=== PATIENT | female | born 1985 | race American Indian/Alaskan Native ===

== ENCOUNTER 2018-07-16 09:11 | Emergency (ER) | payer OTHER ==
[2018-07-16 09:28] VITALS: BP 128/77
[2018-07-16] MEDS ORDERED: FLEXERIL PO ONE (10:14)
[2018-07-16] MEDS ORDERED: IBUPROFEN PO ONE (10:14)
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
== END 2018-07-16 11:08 | disposition home or self-care (01) ==
LOC: ED 09:11
DX: M25.512 Pain in left shoulder (principal); M79.18 Myalgia, other site; V49.49XA Driver injured in collision with other motor vehicles in traffic accident, initial encounter; Y93.89 Activity, other specified; Y92.89 Other specified places as the place of occurrence of the external cause; Y99.8 Other external cause status

== ENCOUNTER 2018-07-30 11:18 | Emergency (ER) | payer OTHER ==
[2018-07-30 11:49] VITALS: BP 128/68
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
[2018-07-30 12:42] LABS: Bilirubin,Urine NEG (Negative); Blood,Urine NEG (Negative); Color,Urine Yellow (Yellow); Mucus,Urine FEW /HPF; Protein,Urine <15 mg/dL mg/dL (Negative); RBC,Urine < 1.0 /HPF (0.0-6.0); Urobilinogen,Urine < 2.0 mg/dL (<2.0)
[2018-07-30 12:48] LABS: HCG Qualitative,Urine Negative (Negative)
--- NOTE | 2018-07-30 13:14 | Emergency Department Report ---
ED Female HPI - General Chief complaint: Abdominal Pain Stated complaint: ABD PAIN Time Seen by Provider: 07/30/18 11:48 Source: patient Mode of arrival: Ambulatory Limitations: No Limitations - History of Present Illness Initial comments: This is a 33-year-old female who presents ED complaining of vaginal irritation and discharge time 2-3 days. Patient states the changes in having some malodorous vaginal discharge. She denies abnormal bleeding. This last menstrual period was 07/21/2018. She describes some low pelvic cramping otherwise no other symptoms. She states that she mildly worried she has an STD. She denies fevers chills/nausea vomiting/dysuria Complaint: vaginal discharge - Related Data Previous Rx's Medication Instructions Recorded Last Taken Type Cyclobenzaprine [Flexeril] 10 mg PO TID PRN #10 tablet 07/16/18 Unknown Rx Ibuprofen [Motrin] 800 mg PO Q8HR PRN #20 tablet 07/16/18 Unknown Rx predniSONE [Deltasone] 20 mg PO DAILY #5 tablet 07/16/18 Unknown Rx metroNIDAZOLE [Flagyl] 500 mg PO Q12HR #14 tab 07/30/18 Unknown Rx Allergies Allergy/AdvReac Type Severity Reaction Status Date / Time No Known Allergies Allergy Verified 07/30/18 11:29 ED Review of Systems ROS: Stated complaint: ABD PAIN Other details as noted in HPI Comment: All other systems reviewed and negative ED Past Medical Hx - Past Medical History Previous Medical History?: No - Surgical History Additional Surgical History: C SECTION - Social History Smoking Status: Never Smoker Substance Use Type: None - Medications Home Medications: Home Medications Medication Instructions Recorded Confirmed Last Taken Type Cyclobenzaprine [Flexeril] 10 mg PO TID PRN #10 tablet 07/16/18 Unknown Rx Ibuprofen [Motrin] 800 mg PO Q8HR PRN #20 tablet 07/16/18 Unknown Rx predniSONE [Deltasone] 20 mg PO DAILY #5 tablet 07/16/18 Unknown Rx metroNIDAZOLE [Flagyl] 500 mg PO Q12HR #14 tab 07/30/18 Unknown Rx ED Physical Exam - General Limitations: No Limitations General appearance: alert, in no apparent distress - Head Head exam: Present: atraumatic, normocephalic - Eye Eye exam: Present: normal appearance - ENT ENT exam: Present: mucous membranes moist - Neck Neck exam: Present: normal inspection - Respiratory Respiratory exam: Present: normal lung sounds bilaterally. Absent: respiratory distress - Cardiovascular Cardiovascular Exam: Present: regular rate, normal rhythm. Absent: systolic murmur, diastolic murmur, rubs, gallop - GI/Abdominal GI/Abdominal exam: Present: soft, normal bowel sounds - External exam: Present: normal external exam Speculum exam: Present: normal speculum exam, vaginal discharge (no odor) Bi-manual exam: Present: normal bi-manual exam - Extremities Exam Extremities exam: Present: normal inspection - Back Exam Back exam: Present: normal inspection - Neurological Exam Neurological exam: Present: alert, oriented X3 - Psychiatric Psychiatric exam: Present: normal affect, normal mood - Skin Skin exam: Present: warm, dry, intact, normal color. Absent: rash ED Course Vital Signs 07/30/18 11:48 Temperature 98.1 F Pulse Rate 76 Respiratory 18 Rate Blood Pressure 128/68 O2 Sat by Pulse 99 Oximetry ED Medical Decision Making - Medical Decision Making 33-year-old female presents with vaginal discharge. Urinalysis, negative regnancy test negative Wet prep shows greater than 2 clue cells Discussed the patient tolerated Chlamydia culture would not be back for another 3-4 days. Discussed the patient urinalysis is clean sign discussed the follow-up gynecology referrals given. Critical care attestation.: If time is entered above; I have spent that time in minutes in the direct care of this critically ill patient, excluding procedure time. ED Disposition Clinical Impression: Vaginitis Disposition: DC-01 TO HOME OR SELFCARE Is pt being admited?: No Does the pt Need Aspirin: No Condition: Stable Instructions: Bacterial Vaginosis (ED), Vaginitis (ED), Abdominal Pain (ED) Additional Instructions: Make sure to follow up with the primary care physician as discussed. Take all your medications as you've been prescribed. If you have any worsening symptoms or develop new symptoms please return to ED immediately. Prescriptions: metroNIDAZOLE [Flagyl] 500 mg PO Q12HR #14 tab Referrals: [facility] [Outside] - 3-5 Days Forms: Work/School Release Form(ED)
== END 2018-07-30 13:38 | disposition home or self-care (01) ==
LOC: ED 11:18
DX: N76.0 Acute vaginitis (principal)
CPT/HCPCS: 81001; 81025; 87210; 87591

== ENCOUNTER 2019-01-03 12:58 | Emergency (ER) | payer SELFPAY ==
[2019-01-03 13:17] VITALS: BP 142/86
[2019-01-03 14:27] LABS: Bilirubin,Urine NEG (Negative); Blood,Urine NEG (Negative); Color,Urine Yellow (Yellow); Protein,Urine <15 mg/dL mg/dL (Negative); Urobilinogen,Urine < 2.0 mg/dL (<2.0)
[2019-01-03 14:28] LABS: Mucus,Urine 2+ /HPF
[2019-01-03 14:38] LABS: HCG Qualitative,Urine Negative (Negative)
[2019-01-03] MEDS ORDERED: IBUPROFEN PO ONE (15:24)
--- NOTE | 2019-01-03 15:36 | Emergency Department Report ---
ED Female HPI - General Chief complaint: Abdominal Pain Stated complaint: VAGINAL BURNING Time Seen by Provider: 01/03/19 14:27 Source: patient Mode of arrival: Ambulatory Limitations: No Limitations - History of Present Illness Initial comments: 33-year-old female with no significant past medical history and past surgical history of presents complaining of vaginal burning and irritation with discharge 2 days. Patient denies nausea, vomiting, dysuria, urinary frequency, fever, or hematuria. She states the active with one partner and does not use condoms. - Related Data Previous Rx's Medication Instructions Recorded Last Taken Type Cyclobenzaprine [Flexeril] 10 mg PO TID PRN #10 tablet 07/16/18 Unknown Rx Ibuprofen [Motrin] 800 mg PO Q8HR PRN #20 tablet 07/16/18 Unknown Rx predniSONE [Deltasone] 20 mg PO DAILY #5 tablet 07/16/18 Unknown Rx metroNIDAZOLE [Flagyl] 500 mg PO Q12HR #14 tab 07/30/18 Unknown Rx Allergies Allergy/AdvReac Type Severity Reaction Status Date / Time No Known Allergies Allergy Verified 01/03/19 12:59 ED Review of Systems ROS: Stated complaint: VAGINAL BURNING Other details as noted in HPI Comment: All other systems reviewed and negative ED Past Medical Hx - Past Medical History Previous Medical History?: No - Surgical History Additional Surgical History: C SECTION - Social History Smoking Status: Never Smoker - Medications Home Medications: Home Medications Medication Instructions Recorded Confirmed Last Taken Type Cyclobenzaprine [Flexeril] 10 mg PO TID PRN #10 tablet 07/16/18 Unknown Rx Ibuprofen [Motrin] 800 mg PO Q8HR PRN #20 tablet 07/16/18 Unknown Rx predniSONE [Deltasone] 20 mg PO DAILY #5 tablet 07/16/18 Unknown Rx metroNIDAZOLE [Flagyl] 500 mg PO Q12HR #14 tab 07/30/18 Unknown Rx ED Physical Exam - General Limitations: No Limitations - Other Other exam information: Gen.: No acute distress Head: Atraumatic Eyes: Normal appearance ENT: Moist mucous membranes Neck: Normal appearance, no posterior midline tenderness, no meningismus Chest: Clear to auscultation bilaterally Cardiovascular: Regular rate and rhythm Abdomen: Normal appearance, soft, mild suprapubic tenderness, no rebound or guarding, normal bowel sounds : white clumping vag d/c, mild fishy odor, no external lesions, no cmt Back: Normal appearance, nontender Extremity: Full range of motion, normal appearance Neuro: Alert, clear speech, no focal motor or sensory deficit Psychiatric: Appropriate Skin: No rash ED Course Vital Signs 01/03/19 13:15 Temperature 97.6 F Pulse Rate 84 Respiratory 18 Rate Blood Pressure 142/86 O2 Sat by Pulse 100 Oximetry - Reevaluation(s) Reevaluation #1: 01/03/19 15:33 motrin offered to pt. she told nurse to "take that shit out of here." Motrin was refused ED Medical Decision Making - Lab Data Lab Results 01/03/19 01/03/19 Range/Units Unknown Unknown Urine Color Yellow (Yellow) Urine Turbidity Hazy (Clear) Urine pH 5.0 (5.0-7.0) Ur Specific [place] 1.027 (1.003-1.030) Urine Protein <15 mg/dl (Negative) mg/dL Urine Glucose (UA) Neg (Negative) mg/dL Urine Ketones Neg (Negative) mg/dL Urine Blood Neg (Negative) Urine Nitrite Neg (Negative) Urine Bilirubin Neg (Negative) Urine Urobilinogen < 2.0 (<2.0) mg/dL Ur Leukocyte Esterase Sm (Negative) Urine WBC (Auto) 3.0 (0.0-6.0) /HPF Urine RBC (Auto) 4.0 (0.0-6.0) /HPF U Epithel Cells (Auto) 17.0 H (0-13.0) /HPF Urine Mucus 2+ /HPF Urine HCG, Qual Negative (Negative) wet prep < 20 clue cells, no trich, no yeast - Medical Decision Making vaginal irritation no acute infection identified in ed gc/chlamydia pending - Differential Diagnosis cervicitis, vaginitis, , UTI Critical Care Time: No Critical care attestation.: If time is entered above; I have spent that time in minutes in the direct care of this critically ill patient, excluding procedure time. ED Disposition Clinical Impression: Vaginal irritation Disposition: DC- TO HOME OR SELFCARE Is pt being admited?: No Condition: Stable Instructions: Vaginitis (ED) Additional Instructions: Take the medication as prescribed. Follow-up with your doctor or with the doctor/clinic provided. Return if symptoms worsen as indicated by your discharge instructions.Your gonorrhea and chlamydia tests were sent. These take about 2-3 days to result. You may obtain results by going to medical records with photo ID. Your doctor may also requested results from his or her office after you provide written permission. Referrals: PRIMARY CARE, [Primary Care Provider] - 3-5 Days [facility] [Provider Group] - 3-5 Days ELE SORTO MD [Staff Physician] - 3-5 Days (pilot instructor ) Time of Disposition: 16:15
== END 2019-01-03 16:30 | disposition home or self-care (01) ==
LOC: ED 12:58
DX: N89.8 Other specified noninflammatory disorders of vagina (principal); Z79.899 Other long term (current) drug therapy
CPT/HCPCS: 81001; 81025; 87210; 87591

== ENCOUNTER 2020-10-23 06:59 | Emergency (ER) | payer OTHER ==
[2020-10-23 07:14] VITALS: BP 136/98
[2020-10-23 10:53] LABS: HCG Qualitative,Urine Negative (Negative)
--- NOTE | 2020-10-23 11:29 | XRay Report ---
CHEST 2 VIEWS INDICATION / CLINICAL INFORMATION: sob,cough and rales. COMPARISON: None available. FINDINGS: SUPPORT DEVICES: None. HEART / MEDIASTINUM: The right heart border is prominent and the main pulmonary artery appears dilate d. LUNGS / PLEURA: No significant pulmonary or pleural abnormality. No pneumothorax. ADDITIONAL FINDINGS: No significant additional findings. IMPRESSION: 1. The right atrium appears dilated as well as the main pulmonary artery. Findings are concerning for pulmonary artery hypertension. The lungs are clear. Signer Name: Keagan Rios MD Signed: 10/23/2020 11:24 AM Workstation Name: [email or web address]
--- NOTE | 2020-10-23 11:43 | Emergency Department Report ---
ED General Adult HPI - General Chief complaint: Dyspnea/Respdistress Stated complaint: BODY ACHES/CHEST PAIN Time Seen by Provider: 10/23/20 09:29 Source: patient Mode of arrival: Ambulatory Limitations: No Limitations - History of Present Illness Initial comments: 35-year-old morbid obese -[place] female presents to the emergency room for intermittent cough body aches and chest pain with cough since x2 days. Patient is unvaccinated for Covid. She has not been tested for Covid. She works as a [employer] on the [employer]. Patient states been taking [id number] cough syrup. She denies any fever chills no nausea no vomiting or diarrhea. Patient denies any past medical history currently takes no medications on a daily basis Onset/Timin -: days(s) Location: chest Radiation: non-radiation Severity scale (0 -10): 0 Quality: aching Consistency: intermittent Improves with: none Associated Symptoms: cough Treatments Prior to Arrival: none - Related Data Previous Rx's Medication Instructions Recorded Last Taken Type Cyclobenzaprine [Flexeril] 10 mg PO TID PRN #10 tablet 07/16/18 Unknown Rx Ibuprofen [Motrin] 800 mg PO Q8HR PRN #20 tablet 07/16/18 Unknown Rx predniSONE [Deltasone] 20 mg PO DAILY #5 tablet 07/16/18 Unknown Rx metroNIDAZOLE [Flagyl] 500 mg PO Q12HR #14 tab 07/30/18 Unknown Rx Allergies Allergy/AdvReac Type Severity Reaction Status Date / Time No Known Allergies Allergy Verified 01/03/19 12:59 ED Review of Systems ROS: Stated complaint: BODY ACHES/CHEST PAIN Other details as noted in HPI ED Past Medical Hx - Past Medical History Previous Medical History?: No - Surgical History Past Surgical History?: Yes Additional Surgical History: C SECTION - Social History Smoking Status: Never Smoker - Medications Home Medications: Home Medications Medication Instructions Recorded Confirmed Last Taken Type Cyclobenzaprine [Flexeril] 10 mg PO TID PRN #10 tablet 07/16/18 Unknown Rx Ibuprofen [Motrin] 800 mg PO Q8HR PRN #20 tablet 07/16/18 Unknown Rx predniSONE [Deltasone] 20 mg PO DAILY #5 tablet 07/16/18 Unknown Rx metroNIDAZOLE [Flagyl] 500 mg PO Q12HR #14 tab 07/30/18 Unknown Rx ED Physical Exam - General Limitations: No Limitations General appearance: alert, in no apparent distress - Head Head exam: Present: atraumatic, normocephalic - Eye Eye exam: Present: normal appearance - ENT ENT exam: Present: mucous membranes moist - Neck Neck exam: Present: normal inspection - Respiratory Respiratory exam: Present: normal lung sounds bilaterally. Absent: respiratory distress - Cardiovascular Cardiovascular Exam: Present: regular rate, normal rhythm. Absent: systolic murmur, diastolic murmur, rubs, gallop - GI/Abdominal GI/Abdominal exam: Present: soft, normal bowel sounds - Extremities Exam Extremities exam: Present: normal inspection - Back Exam Back exam: Present: normal inspection - Neurological Exam Neurological exam: Present: alert, oriented X3, normal gait - Psychiatric Psychiatric exam: Present: normal affect, normal mood - Skin Skin exam: Present: warm, dry, intact, normal color. Absent: rash ED Course Vital Signs 10/23/20 07:13 Temperature 98.5 F Pulse Rate 70 Respiratory 18 Rate Blood Pressure 136/98 [Right] O2 Sat by Pulse 99 Oximetry ED Medical Decision Making - Radiology Data Radiology results: report reviewed Study Comments [facility] [address] [place] [address] XRay Report Signed Patient: JOSUÉ MONACO MR#: [id number] : 1985 Acct:[id number] Age/Sex: 35 / F ADM Date: 10/23/20 Loc: ED Attending Dr: Ordering Physician: LOREN SANTANA Date of Service: 10/23/20 Procedure(s): XR chest routine 2V Accession Number(s): [id number] cc: LOREN SANTANA Fluoro Time In Minutes: CHEST 2 VIEWS INDICATION / CLINICAL INFORMATION: sob,cough and rales. COMPARISON: None available. FINDINGS: SUPPORT DEVICES: None. HEART / MEDIASTINUM: The right heart border is prominent and the main pulmonary artery appears dilated. LUNGS / PLEURA: No significant pulmonary or pleural abnormality. No pneumothorax. ADDITIONAL FINDINGS: No significant additional findings. IMPRESSION: 1. The right atrium appears dilated as well as the main pulmonary artery. Findings are concerning for pulmonary artery hypertension. The lungs are clear. Signer Name: Keagan Rios MD Signed: 10/23/2020 11:24 AM Workstation Name: [email or web address] Transcribed By: DB Dictated By: KEAGAN RIOS MD Electronically Authenticated By: KEAGAN RIOS MD Signed Date/Time: 10/23/20 1124 DD/ 1119 TD/TT: Critical care attestation.: If time is entered above; I have spent that time in minutes in the direct care of this critically ill patient, excluding procedure time. ED Disposition Clinical Impression: Cough, Viral syndrome Disposition: DC-01 TO HOME OR SELFCARE Is pt being admited?: No Does the pt Need Aspirin: No Condition: Stable Additional Instructions: Your symptoms appear most consistent with a nonspecific viral syndrome. However, given this current pandemic, COVID-19 is in the differential of possibilities. I do recommend outpatient Covid 19 testing. In the meantime, isolate/quarantine yourself and stay away from anyone who is elderly, immunocompromised or chronically ill. You can use ibuprofen every 6-8 hours and Tylenol every 4-8 hours, using the dosing on the back of the bottle, as needed for any fever or body aches. Return to the emergency department with any worsening of your symptoms, development of chest pain or shortness of breath, or with any acute distress. Chest x-ray is negative for any pneumonia. Vital signs are stable. Referrals: PRIMARY CAREMD [Primary Care Provider] - 3-5 Days [facility] [Provider Group] - 3-5 Days Forms: Work/School Release Form(ED) Time of Disposition: 12:00
== END 2020-10-23 12:12 | disposition home or self-care (01) ==
LOC: ED 06:59
DX: B34.9 Viral infection, unspecified (principal)
CPT/HCPCS: 71046; 81025; 99283

== ENCOUNTER 2020-11-12 22:22 | Emergency (ER) | payer OTHER | END 2020-11-13 19:03 | disposition home or self-care (01) | LOC: ED 22:22 | DX: R21 Rash and other nonspecific skin eruption (principal); Z53.21 Procedure and treatment not carried out due to patient leaving prior to being seen by health care provider ==

== ENCOUNTER 2020-11-25 23:55 | Emergency (ER) | payer OTHER ==
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
--- NOTE | 2020-11-26 03:49 | Emergency Department Report ---
ED Lower Extremity HPI - General Chief Complaint: Extremity Injury, Lower Stated Complaint: LEFT ANKLE SWOLLEN AND PAINFUL Source: patient Mode of arrival: Wheelchair Limitations: No Limitations - History of Present Illness Initial Comments: Patient is a 35-year-old -Dominican female with no past medical history presents to the ED with complaint of acute onset persistent severe left ankle and foot pain with swelling after she accidentally twisted her left ankle and fell down about 3 hours ago. Patient states that the pain is worse with any movement and that she is unable to bear weight on the left foot or left ankle. Patient denies head or neck injuries, back pain, chest pain, shortness of breath, hip pain, abdominal pain, nausea and vomiting or loss of consciousness, numbness and tingling or weakness of lower extremities bilaterally. MD Complaint: ankle injury (Left ankle pain and swelling), foot injury (Left foot pain and swelling) -: Sudden, hour(s) (3) Injury: Ankle: Left (Pain and swelling), Foot: Left (Pain and swelling) Type of Injury: inversion, other (Twisted left ankle and foot) Place: home Severity: severe Severity scale (0 -10): 8 Improves With: nothing Worsens With: weight bearing, movement, palpation Context: other (Twisted left ankle and foot) Associated Symptoms: swelling, unable to bear weight. denies: snap/pop sensation, numbness, tingling, able to partially bear weight, ambulatory - Related Data Previous Rx's Medication Instructions Recorded Last Taken Type Cyclobenzaprine [Flexeril] 10 mg PO TID PRN #10 tablet 07/16/18 Unknown Rx Ibuprofen [Motrin] 800 mg PO Q8HR PRN #20 tablet 07/16/18 Unknown Rx predniSONE [Deltasone] 20 mg PO DAILY #5 tablet 07/16/18 Unknown Rx metroNIDAZOLE [Flagyl] 500 mg PO Q12HR #14 tab 07/30/18 Unknown Rx HYDROcodone/APAP 7.5-325 [[place] 1 each PO Q6HR PRN #12 tablet 11/26/20 Unknown Rx 7.5/325] Ibuprofen [Motrin] 800 mg PO Q8HR PRN #30 tablet 11/26/20 Unknown Rx Allergies Allergy/AdvReac Type Severity Reaction Status Date / Time No Known Allergies Allergy Verified 01/03/19 12:59 ED Review of Systems ROS: Stated complaint: LEFT ANKLE SWOLLEN AND PAINFUL Other details as noted in HPI Constitutional: denies: chills, fever Eyes: denies: eye pain, eye discharge, vision change ENT: denies: ear pain, throat pain Respiratory: denies: cough, shortness of breath, wheezing Cardiovascular: denies: chest pain, palpitations Endocrine: no symptoms reported Gastrointestinal: denies: abdominal pain, nausea, diarrhea Genitourinary: denies: urgency, dysuria, discharge Musculoskeletal: joint swelling (Left ankle and foot pain and swelling), arthralgia (Left ankle and foot pain with swelling). denies: back pain Skin: denies: rash, lesions Neurological: denies: headache, weakness, paresthesias Psychiatric: denies: anxiety, depression Hematological/Lymphatic: denies: easy bleeding, easy bruising ED Past Medical Hx - Past Medical History Previous Medical History?: No - Surgical History Past Surgical History?: Yes Additional Surgical History: C SECTION - Social History Smoking Status: Never Smoker - Medications Home Medications: Home Medications Medication Instructions Recorded Confirmed Last Taken Type Cyclobenzaprine [Flexeril] 10 mg PO TID PRN #10 tablet 07/16/18 Unknown Rx Ibuprofen [Motrin] 800 mg PO Q8HR PRN #20 tablet 07/16/18 Unknown Rx predniSONE [Deltasone] 20 mg PO DAILY #5 tablet 07/16/18 Unknown Rx metroNIDAZOLE [Flagyl] 500 mg PO Q12HR #14 tab 07/30/18 Unknown Rx HYDROcodone/APAP 7.5-325 [[place] 1 each PO Q6HR PRN #12 tablet 11/26/20 Unknown Rx 7.5/325] Ibuprofen [Motrin] 800 mg PO Q8HR PRN #30 tablet 11/26/20 Unknown Rx ED Physical Exam - General Limitations: No Limitations General appearance: alert, in no apparent distress - Head Head exam: Present: atraumatic, normocephalic, normal inspection - Eye Eye exam: Present: normal appearance, PERRL, EOMI Pupils: Present: normal accommodation - ENT ENT exam: Present: normal exam, normal orophraynx, mucous membranes moist, TM's normal bilaterally, normal external ear exam - Neck Neck exam: Present: normal inspection, full ROM - Respiratory Respiratory exam: Present: normal lung sounds bilaterally. Absent: respiratory distress, wheezes, rales, chest wall tenderness, accessory muscle use, decreased breath sounds - Cardiovascular Cardiovascular Exam: Present: regular rate, normal rhythm, normal heart sounds. Absent: systolic murmur, diastolic murmur, rubs, gallop - GI/Abdominal GI/Abdominal exam: Present: soft, normal bowel sounds. Absent: tenderness, guarding, rebound, hyperactive bowel sounds, hypoactive bowel sounds, organomegaly - Extremities Exam Extremities exam: Present: normal inspection, tenderness (Severe palpable left ankle and foot tenderness with mild swelling), normal capillary refill, joint swelling (Left ankle swelling). Absent: full ROM (Limited range of motion of the left ankle and foot due to pain), calf tenderness - Back Exam Back exam: Present: normal inspection, full ROM. Absent: tenderness, CVA tenderness (R), CVA tenderness (L), muscle spasm, paraspinal tenderness, vertebral tenderness - Neurological Exam Neurological exam: Present: alert, oriented X3, CN II-XII intact, normal gait, reflexes normal - Psychiatric Psychiatric exam: Present: normal affect, normal mood - Skin Skin exam: Present: warm, dry, intact, normal color. Absent: rash ED Course Vital Signs 11/26/20 11/26/20 02:12 05:28 Temperature 98.7 F 98.0 F Pulse Rate 71 64 Respiratory 16 Rate Blood Pressure 147/94 152/84 [Right] O2 Sat by Pulse 100 100 Oximetry ED Lower Extremity MDM - Radiology Data Radiology results: report reviewed, image reviewed [facility] [address] [place] [address] XRay Report Signed Patient: JOSUÉ MONACO MR#: [id number] : 1985 Acct:[id number] Age/Sex: 35 / F ADM Date: 11/25/20 Loc: ED Attending Dr: Ordering Physician: LASHAWN FLAHERTY MD Date of Service: 11/26/20 Procedure(s): XR ankle 3+V LT Accession Number(s): [id number] cc: LASHAWN FLAHERTY MD Fluoro Time In Minutes: Left foot 3 views INDICATION: Injury FINDINGS: MTP joints and IP joints appear intact. Midfoot alignment appears intact. Calcaneus appears normal. Left ankle 3 views INDICATION: Injury FINDINGS: Spinal fracture within the distal fibula extending to the distal tibiofibular joint. No widening of the syndesmosis. Talar dome appears intact. Diffuse soft tissue swelling throughout the ankle. IMPRESSION: Sprout fracture which may be slightly comminuted in the distal fibula. No severe displacement. Diffuse soft tissue swelling is seen. Signer Name: Brad Horan MD Signed: 11/26/2020 3:29 AM Workstation Name: [id number] Transcribed By: JANINE Dictated By: CINDY HORAN MD Electronically Authenticated By: CINDY HORAN MD Signed Date/Time: 11/26/20328 DD/ 7 TD/TT: - Medical Decision Making This is a 35-year-old -Dominican female with no past medical history presents to the ED with complaint of acute onset persistent severe left ankle and foot pain with swelling after she accidentally twisted her left ankle and fell down about 3 hours ago. Patient states that the pain is worse with any movement and that she is unable to bear weight on the left foot or left ankle. In the ED, patient is alert and oriented x3 and is not in any distress but appears to be in significant pain. Patient was treated for pain in the ED and left ankle and foot x-rays showed spinal fracture within the distal fibula extending to the distal tibiofibular joint. No widening of the syndesmosis. Talar dome appears intact. Diffuse soft tissue swelling throughout the ankle. The patient left ankle and foot was splinted with long leg posterior splint, and also fitted with crutches for ambulation. Patient was discharged home on pain medications and given a referral to the orthopedic surgeon Dr. Hassan for follow-up in 2 to 3 days. Patient was advised to contact the Mo's office first thing in the morning on Friday, November 27, 2020 to schedule a follow-up appointment. Patient was advised return to the ED immediately if symptoms get worse. - Differential Diagnosis Foot fracture; ankle fracture; ankle sprain; foot sprain Critical care attestation.: If time is entered above; I have spent that time in minutes in the direct care of this critically ill patient, excluding procedure time. ED Disposition Clinical Impression: Fracture of distal end of left fibula Qualifiers: Encounter type: initial encounter Fracture type: closed Fracture morphology: other fracture Qualified Code(s): S82.832A - Other fracture of upper and lower end of left fibula, initial encounter for closed fracture Sprain of left foot Qualifiers: Encounter type: initial encounter Qualified Code(s): S93.602A - Unspecified sprain of left foot, initial encounter Disposition: HOME / SELF CARE / HOMELESS Is pt being admited?: No Does the pt Need Aspirin: No Condition: Stable Instructions: Nondisplaced Fibular Ankle Fracture Treated With Immobilization, Adult, Cast or Splint Care, Adult, [id number] Additional Instructions: The left ankle and foot x-rays showed closed nondisplaced distal left fibula fracture. Therefore observe complete nonweightbearing on the left ankle and foot, take pain medications as needed with food, drink plenty of fluids and follow-up with the orthopedic surgeon Dr. Hassan for further evaluation. Contact Dr. Hassan's office first thing in the morning on Friday, November 27, 2020 to schedule a follow-up appointment. Return to the ED immediately if symptoms get worse. Prescriptions: Ibuprofen [Motrin] 800 mg PO Q8HR PRN #30 tablet PRN Reason: Pain , Severe (7-10) HYDROcodone/APAP 7.5-325 [[place] 7.5/325] 1 each PO Q6HR PRN #12 tablet PRN Reason: Pain Referrals: ALBINO HASSAN MD [Staff Physician] - 2-3 Days Forms: Work/School Release Form(ED) Time of Disposition: 03:51 Print Language: AZERI
[2020-11-26] MEDS ORDERED: IBUPROFEN 600 MG TAB PO ONE (03:57)
[2020-11-26] MEDS ORDERED: HYDROcodone/ACETAMINOPHEN 7.5-325MG TAB PO ONE (03:57)
[2020-11-26 05:29] VITALS: BP 152/84
== END 2020-11-26 05:29 | disposition home or self-care (01) ==
LOC: ED 23:55
DX: S82.832A Other fracture of upper and lower end of left fibula, initial encounter for closed fracture (principal); S93.602A Unspecified sprain of left foot, initial encounter; Z79.899 Other long term (current) drug therapy; Z98.890 Other specified postprocedural states; X58.XXXA Exposure to other specified factors, initial encounter; Y93.89 Activity, other specified; Y92.099 Unspecified place in other non-institutional residence as the place of occurrence of the external cause; Y99.8 Other external cause status

== ENCOUNTER 2021-01-06 05:23 | Emergency (ER) | payer OTHER ==
--- NOTE | 2021-01-06 06:36 | XRay Report ---
CHEST 2 VIEWS INDICATION / CLINICAL INFORMATION: Chest Pain. COMPARISON: None available. FINDINGS: SUPPORT DEVICES: None. HEART / MEDIASTINUM: No significant abnormality. LUNGS / PLEURA: No significant pulmonary or pleural abnormality. No pneumothorax. ADDITIONAL FINDINGS: No significant additional findings. IMPRESSION: 1. No acute findings. Signer Name: Brad Horan MD Signed: 01/06/2021 6:32 AM Workstation Name: [email or web address]
--- NOTE | 2021-01-06 08:08 | Emergency Department Report ---
ED Chest Pain HPI - General Chief Complaint: Chest Pain Stated Complaint: SOB WHOLE BODY HURT Time Seen by Provider: 01/06/21 08:03 Source: patient Mode of arrival: Ambulatory Limitations: No Limitations - History of Present Illness Initial Comments: 35-year-old -English female presents to the emergency department with multiple complaints. Patient broke her left ankle about 1 month ago and has been wearing an orthopedic boot. She now complains of having pain to the left calf and back of the left knee and upper leg for the past few days. She denies any swelling of the leg. The patient also complains of a 2 to 3-day history of generalized body aches including some generalized chest pain/pressure. This worsens with breathing and with certain movements of her torso. Lastly, the patient says that she noticed some bright red blood in her stool since overnight last night. She tried some Tylenol earlier in the day without any relief. No recent travel or sick contacts at home. She denies any tobacco use. No family history of early NV. - Related Data Previous Rx's Medication Instructions Recorded Last Taken Type Cyclobenzaprine [Flexeril] 10 mg PO TID PRN #10 tablet 07/16/18 Unknown Rx Ibuprofen [Motrin] 800 mg PO Q8HR PRN #20 tablet 07/16/18 Unknown Rx predniSONE [Deltasone] 20 mg PO DAILY #5 tablet 07/16/18 Unknown Rx metroNIDAZOLE [Flagyl] 500 mg PO Q12HR #14 tab 07/30/18 Unknown Rx HYDROcodone/APAP 7.5-325 [[place] 1 each PO Q6HR PRN #12 tablet 11/26/20 Unknown R x 7.5/325] Ibuprofen [Motrin] 800 mg PO Q8HR PRN #30 tablet 11/26/20 Unknown Rx Allergies Allergy/AdvReac Type Severity Reaction Status Date / Time No Known Allergies Allergy Verified 01/03/19 12:59 Heart Score - HEART Score History: Slightly suspicious EKG: Normal Age: < 45 Risk factors: No known risk factors Troponin: < normal limit HEART Score: 0 - EKG Read Time Time EKG Completed: 05:41 EKG Read Time: 05:43 ED Review of Systems ROS: Stated complaint: SOB WHOLE BODY HURT Other details as noted in HPI Comment: All other systems reviewed and negative Constitutional: denies: chills, fever Eyes: denies: eye pain, vision change ENT: denies: ear pain, throat pain Respiratory: shortness of breath. denies: cough Cardiovascular: chest pain. denies: palpitations Gastrointestinal: denies: abdominal pain, vomiting Genitourinary: denies: dysuria, discharge Musculoskeletal: back pain, myalgia Skin: denies: rash, lesions Neurological: denies: headache, weakness, numbness ED Past Medical Hx - Past Medical History Previous Medical History?: No - Surgical History Past Surgical History?: Yes Additional Surgical History: C SECTION, plates & screws L ankle. - Social History Smoking Status: Never Smoker - Medications Home Medications: Home Medications Medication Instructions Recorded Confirmed Last Taken Type Cyclobenzaprine [Flexeril] 10 mg PO TID PRN #10 tablet 07/16/18 Unknown Rx Ibuprofen [Motrin] 800 mg PO Q8HR PRN #20 tablet 07/16/18 Unknown Rx predniSONE [Deltasone] 20 mg PO DAILY #5 tablet 07/16/18 Unknown Rx metroNIDAZOLE [Flagyl] 500 mg PO Q12HR #14 tab 07/30/18 Unknown Rx HYDROcodone/APAP 7.5-325 [[place] 1 each PO Q6HR PRN #12 tablet 11/26/20 Unknown Rx 7.5/325] Ibuprofen [Motrin] 800 mg PO Q8HR PRN #30 tablet 11/26/20 Unknown Rx ED Physical Exam - General Limitations: No Limitations - Other Other exam information: GENERAL: The patient is well-developed well-nourished. HENT: Normocephalic. Atraumatic. Patient has moist mucous membranes. EYES: Extraocular motions are intact. NECK: Supple. Trachea is midline. CHEST/LUNGS: Clear to auscultation. There is no respiratory distress noted. HEART/CARDIOVASCULAR: Regular. There is no tachycardia. There is no murmur. ABDOMEN: Abdomen is soft, nontender. Patient has normal bowel sounds. Obese habitus. SKIN: Skin is warm and dry. NEURO: The patient is awake, alert, and oriented. The patient is cooperative. The patient has no focal neurologic deficits. Normal speech. MUSCULOSKELETAL: There is some tenderness to palpation to the left calf. There is no limitation range of motion. RECTAL: Deferred ED Course Vital Signs 01/06/21 01/06/21 05:33 10:57 Temperature 98.9 F 98.6 F Pulse Rate 68 61 Respiratory 16 20 Rate Blood Pressure 147/89 127/86 O2 Sat by Pulse 97 97 Oximetry JAGJIT score - Jagjit Score Age > 65: (0) No Aspirin use within the Past 7 Days: (0) No 3 or more CAD Risk Factors: (0) No 2 or more Angina events in past 24 hrs: (1) Yes Known CAD with more than 50% Stenosis: (0) No Elevated Cardiac Markers: (0) No ST Deviation Greater than 0.5mm: (0) No JAGJIT Score: 1 ED Medical Decision Making - Lab Data Result diagrams: 01/06/21 08:21 01/06/21 08:21 - EKG Data -: EKG Interpreted by Me EKG shows normal: sinus rhythm, axis, intervals, QRS complexes, ST-T waves Rate: normal - EKG Data When compared to previous EKG there are: previous EKG unavailable Interpretation: normal EKG - Radiology Data Radiology results: report reviewed, image reviewed interpreted by me: Chest x-ray does not show any acute process. There are no pleural effusions, obvious pneumonia and there is no pneumothorax. No widened mediastinum. DUPLEX DOPPLER LOWER EXTREMITY VEINS, LEFT INDICATION: Left leg pain. TECHNIQUE: Duplex doppler imaging was performed through the veins of the left lower extremity using venous compression and other maneuvers. COMPARISON: None available. FINDINGS: Common Femoral vein: Negative. Superficial Femoral vein: Negative. Popliteal vein: Negative. Calf veins: Negative. Additional findings: None. IMPRESSION: 1. No sonographic evidence for DVT in the left lower extremity. - Medical Decision Making This patient presents to the emergency department with generalized body aches, that also includes chest pain. She also complains of left calf pain and going up into the posterior knee. Patient had a left lower extremity venous Doppler ultrasound that was negative for DVT. EKG is normal without morphology consistent with ST elevation myocardial infarction or any arrhythmia. Chest x- ray does not show any pneumonia, pleural effusions, pneumothorax, widened medi astinum, or any other acute process. Labs have been unremarkable including CBC, metabolic panel and a negative troponin. The patient is low on the heart and JAGJIT score. She is low on the Wells score criteria and negative on the pulmonary embolism rule out criteria. For all these reasons the patient appears safe for discharge home at this time. She has been instructed to follow-up with her orthopedist and a vending machine filler through the [employer] system. The patient also told me that she has had some mild rectal bleeding since last night. Hemoglobin was stable. She will follow up with GI and may need a colonoscopy in the near future. She will return to the emergency department with any worse radha of her symptoms or with any acute distress. Critical Care Time: No Critical care attestation.: If time is entered above; I have spent that time in minutes in the direct care of this critically ill patient, excluding procedure time. ED Disposition Clinical Impression: Atypical chest pain, Rectal bleeding, Left leg pain, Hyperkalemia Disposition: HOME / SELF CARE / HOMELESS Is pt being admited?: No Condition: Stable Instructions: Rectal Bleeding, Nonspecific Chest Pain, Adult, Hyperkalemia, Mu sculoskeletal Pain Additional Instructions: Please follow-up with your primary care physician in the next few days. Please follow-up with your orthopedist regarding your left leg pains. The venous Doppler ultrasound done today did not show any evidence of a blood clot. Use your crutches as needed for nonweightbearing to that left leg. Please follow-up with a dressage judge, through the [facility] system, in regards to the rectal bleeding. You may need a colonoscopy in the near future. Return to the emergency department with any worsening of your symptoms, new or concerning symptoms not addressed during this current emergency department visit, or with any acute distress. Referrals: WADE BRIONES [Other] - 2-3 Days Time of Disposition: 10:48
[2021-01-06 09:27] LABS: Basophils % (Auto) 0.7 % (0.0-1.8); Eosinophils # (Auto) 0.3 K/mm3 (0.0-0.4); Eosinophils % (Auto) 3.7 % (0.0-4.3); Hematocrit 40.8 % (30.3-42.9); Hemoglobin 12.8 gm/dl (10.1-14.3); Lymphocytes # (Auto) 2.4 K/mm3 (1.2-5.4); Mean Corpuscular HGB Conc 31 % (30-34); Mean Corpuscular Volume 83 fl (79-97); Monocytes # (Auto) 0.7 K/mm3 (0.0-0.8); Monocytes % (Auto) 9.4 % (0.0-7.3); Platelet Count 274 K/mm3 (140-440); Red Blood Count 4.89 M/mm3 (3.65-5.03); Red Cell Distribution Width 13.9 % (13.2-15.2)
[2021-01-06 09:34] LABS: INR 1.11 (0.87-1.13)
--- NOTE | 2021-01-06 09:49 | Vascular Lab Report ---
DUPLEX DOPPLER LOWER EXTREMITY VEINS, LEFT INDICATION: Left leg pain. TECHNIQUE: Duplex doppler imaging was performed through the veins of the left lower extremity using venous compr ession and other maneuvers. COMPARISON: None available. FINDINGS: Common Femoral vein: Negative. Superficial Femoral vein: Negative. Popliteal vein: Negative. Calf veins: Negative. Additional findings: None. IMPRESSION: 1. No sonographic evidence for DVT in the left lower extremity. Signer Name: Lesli Brooks MD Signed: 01/06/2021 9:44 AM Workstation Name: [id number]
[2021-01-06 09:50] LABS: BUN/Creatinine Ratio 9; Blood Urea Nitrogen 8 mg/dL (7-17); Calcium 9.6 mg/dL (8.4-10.2); Hemolysis Index 25
[2021-01-06] MEDS ORDERED: SODIUM POLYSTYRENE 15 GM/60 ML ORAL LIQD PO ONE (10:37)
[2021-01-06 11:00] VITALS: BP 127/86
--- NOTE | 2021-01-06 12:24 | Electrocardiograph Report ---
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
== END 2021-01-06 11:00 | disposition home or self-care (01) ==
LOC: ED 05:23
DX: R07.89 Other chest pain (principal); K62.5 Hemorrhage of anus and rectum; M79.605 Pain in left leg; E87.6 Hypokalemia
CPT/HCPCS: 36415; 71046; 80048; 84484; 85025; 85610; 93005; 99284

== ENCOUNTER 2021-04-12 21:15 | Emergency (ER) | payer OTHER ==
--- NOTE | 2021-04-14 11:41 | Electrocardiograph Report ---
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
== END 2021-04-13 04:38 | disposition left against medical advice (07) ==
LOC: ED 21:15
DX: R07.89 Other chest pain (principal); Z53.21 Procedure and treatment not carried out due to patient leaving prior to being seen by health care provider
CPT/HCPCS: 93005; 93010

== ENCOUNTER 2021-05-27 16:31 | Emergency (ER) | payer OTHER ==
[2021-05-27 16:39] VITALS: BP 144/85
--- NOTE | 2021-05-27 19:07 | Emergency Department Report ---
ED Anxiety HPI - General Chief Complaint: Chest Pain Stated Complaint: CHEST AND STOMACH PAIN Source: patient Mode of arrival: Ambulatory - History of Present Illness Initial Comments: 36-year-old female presents to the ED with complaint chest pain started this a.m. but has since resolved. Patient has a history of anxiety and depression. She states start taking Prozac 10 mg p.o. daily x2 months ago. Patient is pointing toward epigastric area when asked where the pain was located. Patient is alert and oriented x3. No acute distress noted. No ill appearance noted. She states she is on the Mirena for control. MD Complaint: anxiety Onset/Timin -: hour(s) Symptoms: palpitations Place: home Previous History of Same: Yes Severity: mild Quality: improving Provoking factors: none known Improves With: deep breaths Associated symptoms: denies other symptoms, nausea/vomiting - Related Data Home Medications: Previous Rx's Medication Instructions Recorded Last Taken Type Cyclobenzaprine [Flexeril] 10 mg PO TID PRN #10 tablet 07/16/18 Unknown Rx Ibuprofen [Motrin] 800 mg PO Q8HR PRN #20 tablet 07/16/18 Unknown Rx predniSONE [Deltasone] 20 mg PO DAILY #5 tablet 07/16/18 Unknown Rx metroNIDAZOLE [Flagyl] 500 mg PO Q12HR #14 tab 07/30/18 Unknown Rx HYDROcodone/APAP 7.5-325 [[place] 1 each PO Q6HR PRN #12 tablet 11/26/20 Unknown Rx 7.5/325] Ibuprofen [Motrin] 800 mg PO Q8HR PRN #30 tablet 11/26/20 Unknown Rx Allergies/Adverse Reactions: Allergies Allergy/AdvReac Type Severity Reaction Status Date / Time No Known Allergies Allergy Verified 01/03/19 12:59 ED Review of Systems ROS: Stated complaint: CHEST AND STOMACH PAIN Other details as noted in HPI Constitutional: denies: chills, fever Eyes: denies: eye pain, eye discharge, vision change ENT: denies: ear pain, throat pain Respiratory: denies: cough, shortness of breath, wheezing Cardiovascular: denies: chest pain, palpitations Endocrine: no symptoms reported Gastrointestinal: denies: abdominal pain, nausea, diarrhea Genitourinary: denies: urgency, dysuria, discharge Musculoskeletal: denies: back pain, joint swelling, arthralgia Skin: denies: rash, lesions Neurological: denies: headache, weakness, paresthesias Psychiatric: denies: anxiety, depression Hematological/Lymphatic: denies: easy bleeding, easy bruising ED Past Medical Hx - Surgical History Additional Surgical History: C SECTION, plates & screws L ankle. - Social History Smoking Status: Never Smoker - Medications Home Medications: Home Medications Medication Instructions Recorded Confirmed Last Taken Type Cyclobenzaprine [Flexeril] 10 mg PO TID PRN #10 tablet 07/16/18 Unknown Rx Ibuprofen [Motrin] 800 mg PO Q8HR PRN #20 tablet 07/16/18 Unknown Rx predniSONE [Deltasone] 20 mg PO DAILY #5 tablet 07/16/18 Unknown Rx metroNIDAZOLE [Flagyl] 500 mg PO Q12HR #14 tab 07/30/18 Unknown Rx HYDROcodone/APAP 7.5-325 [[place] 1 each PO Q6HR PRN #12 tablet 11/26/20 Unknown Rx 7.5/325] Ibuprofen [Motrin] 800 mg PO Q8HR PRN #30 tablet 11/26/20 Unknown Rx ED Physical Exam - General Limitations: No Limitations General appearance: alert, in no apparent distress - Head Head exam: Present: atraumatic, normocephalic - Eye Eye exam: Present: normal appearance - ENT ENT exam: Present: mucous membranes moist - Neck Neck exam: Present: normal inspection - Respiratory Respiratory exam: Present: normal lung sounds bilaterally. Absent: respiratory distress - Cardiovascular Cardiovascular Exam: Present: regular rate, normal rhythm. Absent: systolic murmur, diastolic murmur, rubs, gallop - GI/Abdominal GI/Abdominal exam: Present: soft, normal bowel sounds - Extremities Exam Extremities exam: Present: normal inspection - Back Exam Back exam: Present: normal inspection - Neurological Exam Neurological exam: Present: alert, oriented X3 - Psychiatric Psychiatric exam: Present: normal affect, normal mood - Skin Skin exam: Present: warm, dry, intact, normal color. Absent: rash ED Course Vital Signs 05/27/21 16:38 Temperature 98.4 F Pulse Rate 85 Respiratory 18 Rate Blood Pressure 144/85 O2 Sat by Pulse 99 Oximetry ED Medical Decision Making - EKG Data Interpretation: normal EKG - Medical Decision Making 36-year-old female presents to the ED with complaint chest pain started this a.m. but has since resolved. Patient has a history of anxiety and depression. She states start taking Prozac 10 mg p.o. daily x2 months ago. Patient is pointing toward epigastric area when asked where the pain was located. Patient is alert and oriented x3. No acute distress noted. No ill appearance noted. She states she is on the Mirena for control. Physical examination unremarkable. EKG normal sinus rhythm at 88, No ST elevation. Patient did not wish to have any further lab work or imaging done. Rechecked the patient is resting quietly quietly and comfortable and feeling better. I discussed the results of diagnostic study, my clinical impression and the plan for further treatment with the patient. Patient agrees with plan and discharge at this present time. All question addressed. I have given the patient instruction regarding a diagnosis ,expectation ,follow- up and return precaution. I explained to the patient that emergent condition may arise and to return to the ED for new worsen and any new persisting condition. I have explained the importance of following up with the primary care physician or referral physician listed below has instructed. The patient verbalized understanding of discharge instruction. Critical care attestation.: If time is entered above; I have spent that time in minutes in the direct care of this critically ill patient, excluding procedure time. ED Disposition Clinical Impression: Anxiety Disposition: 01 HOME / SELF CARE / HOMELESS Is pt being admited?: No Does the pt Need Aspirin: No Condition: Stable Instructions: Managing Anxiety, Adult Additional Instructions: Continue to take Prozac has prescribed Return to the ED for any worsening symptom Follow-up with your with your primary care doctor within the next 3 to 5 days Forms: Work/School Release Form(ED)
--- NOTE | 2021-05-28 11:13 | Electrocardiograph Report ---
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
== END 2021-05-28 07:34 | disposition home or self-care (01) ==
LOC: ED 16:31
DX: F41.9 Anxiety disorder, unspecified (principal)
CPT/HCPCS: 93005; 99282